=== PATIENT | male | born 1955 | race Caucasian/White ===

== ENCOUNTER 2022-04-23 14:37 | Emergency (ER) | payer MEDICARE, SELFPAY ==
[2022-04-23 14:39] VITALS: BP 150/84; PULSE 102; RESP 20; TEMP 36.7; O2SAT 94; BMI 35.9
[2022-04-23 14:45] VITALS: BP 151/97; PULSE 122; RESP 16; O2SAT 92
--- NOTE | 2022-04-23 15:06 | CT_ITS ---
WS: [id number] CT ABDOMEN AND PELVIS NONCONTRAST HISTORY: hematuria, flank pain TECHNIQUE: Imaging performed through the abdomen and pelvis. Coronal and sagittal reformats are submi tted. All CT scans at [facility] use at least one of these dose optimization techniques: auto mated exposure control; mA and/or kV adjustment per patient size (includes targeted exams where dose is matched to clinical indication); or iterative reconstruction. DLP: 1600.03 mGy.cm COMPARISON: None available. Motion artifact. Lower thorax: Significant motion artifact. Normal size heart. Liver: Normal size liver. No mass or bile duct dilatation. Gallbladder: Significant motion artifact but no adjacent inflammation. Pancreas: Normal size and attenuation. Normal pancreatic duct. No pancreatitis or mass. Spleen: Normal. Adrenal glands: Normal. No mass. Right kidney: Normal size kidney with no mass or hydronephrosis. Left kidney: Normal size kidney. Solid mass is nearly isodense to the adjacent renal parenchyma in th e upper pole. Mass measures 6.4 x 5.3 cm and needs to be further evaluated. Cortical thinning and atr ophy lower pole. Aorta: Mild atherosclerosis aorta. 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 No free fluid, intraperitoneal air or significant lymphadenopathy. GI tract: Normal appendix. No GI tract obstruction. Numerous diverticula without acute diverticulitis . Abdominal wall: Benign-appearing lipoma in the subcutaneous soft tissues of the LEFT abdominal wall m easuring 10 x 9 cm. Pelvis: Normal. Osseous structures: Mild thoracolumbar scoliosis. CT/CT kidney stone [id number] IMPRESSION: 1. No renal obstruction or calcifications. 2. Study is significantly compromised by breathing motion artifact. 3. Solid LEFT renal mass upper pole measures 6.4 x 5.3 cm. Solid renal mass ve rsus hemorrhagic cyst. Recommend follow-up renal mass CT protocol. 4. Additional cortical thinning and scarring lower pole LEFT kidney. 5. Normal appendix. 6. LEFT lateral abdominal wall lipoma.
--- NOTE | 2022-04-23 15:07 | W.ED.MALEGU ---
HPI - Male Genitourinary General: Chief complaint: Urogenital-Male Stated complaint: sent for catscan, abd pain Time Seen by Provider: 04/23/22 14:58 History of Present Illness: 67-year-old male sent in by his primary care provider. Patient reports he was sent for a CAT scan due to having some difficulty urinating with just dribbles, and was told he had a bad infection and blood and they wanted him checked for a kidney stone. Patient reports he started having a hard time with urination yesterday. That he has little bit of mild flank pain bilateral. That he was told that he can get IV fluids and IV antibiotics here. Patient denies any fevers chills nausea or vomiting Associated symptoms: Reports dysuria; Deny nausea or vomiting Review of Systems Const: Denies: fever(s) or chills Eyes: Denies: change in vision or blurry vision Card: Denies: chest pain or palpitations Resp: Denies: dyspnea or productive cough GI: Denies: abdominal pain, nausea or vomiting : Reports: flank pain, dysuria and urinary dribbling Musc: Reports: back pain Skin/Breast: Denies: rash or pruritus Neuro: Denies: headache(s) or dizziness PFSH ED PFSH: Social History Smoking and tobacco status: former smoker Physical Exam Const: COMMON NORMALS: no acute distress, patient oriented x3 and alert HENMT: COMMON NORMALS: hearing grossly normal bilaterally and moist oral mucous membranes Eye: COMMON NORMALS: EOMs intact bilaterally and conjunctivae normal CONJUNCTIVA: Yes conjunctivae normal Resp: COMMON NORMALS: normal respiratory effort, No use of accessory muscles and clear to auscultation bilaterally AUSCULTATION: clear to auscultation bilaterally Cardio: COMMON NORMALS: regular rate and regular rhythm RATE: regular rate RHYTHM: regular rhythm GI: COMMON NORMALS: Soft to palpation PALPATION: Yes Soft to palpation, Yes Tenderness to palpation present (GI) Details: other (Suprapubic) and Yes Bladder palpation abnormal : BLADDER/KIDNEY EXAM: Yes Bladder palpation abnormal Bladder abnormal details: tender and Yes CVA tenderness bilateral (Mild) Back/Pelvis: GENERAL BACK: Yes CVA tenderness Extremity: COMMON NORMALS: full ROM and capillary refill normal Neuro: COMMON NORMALS: patient oriented x3, no focal motor deficits and no sensory deficits noted SENSORIUM/ORIENTATION: Yes alert Psych: COMMON NORMALS: mental status grossly normal, Normal thought process present and normal affect THOUGHT PROCESS: Normal thought process present Skin: COMMON NORMALS: no rashes or lesions noted GENERAL SKIN EXAM: no rashes or lesions noted Course Vital Signs: Vital signs: Vital Signs Temperature 98.0 F 04/23/22 14:39 Pulse Rate 102 H 04/23/22 14:39 Respiratory Rate 20 H 04/23/22 14:39 Blood Pressure 150/84 04/23/22 14:39 Pulse Oximetry 94 04/23/22 14:39 MDM - Male Medical Decision Making Patient with a urinary tract infection treated with Rocephin. There is no signs of traction or calculus. There is a solid left renal mass that needs to be further evaluated which I discussed with patient and they will follow-up with her primary care provider for further evaluation and work-up. Patient stable and discharged home Lab Data Radiology Impressions Abdomen/Pelvis CT 04/23/22 15:06 IMPRESSION: 1. No renal obstruction or calcifications. 2. Study is significantly compromised by breathing motion artifact. 3. Solid LEFT renal mass upper pole measures 6.4 x 5.3 cm. Solid renal mass versus hemorrhagic cyst. Recommend follow-up renal mass CT protocol. 4. Additional cortical thinning and scarring lower pole LEFT kidney. 5. Normal appendix. 6. LEFT lateral abdominal wall lipoma. Laboratory Results Urine Color Dark yellow (Yellow) 04/23/22 15:39 Urine Appearance Cloudy (CLEAR) A 04/23/22 15:39 Urine pH 6 (5-7) 04/23/22 15:39 Ur Specific [place] 1.020 (1.005-1.030) 04/23/22 15:39 Urine Protein 3+ (Negative) H 04/23/22 15:39 Urine Glucose (UA) Norm (Normal) 04/23/22 15:39 Urine Ketones Negative (Negative) 04/23/22 15:39 Urine Blood 3+ (Negative) H 04/23/22 15:39 Urine Nitrate Positive (Negative) H 04/23/22 15:39 Urine Bilirubin 1+ (Negative) H 04/23/22 15:39 Urine Urobilinogen Norm mg/dL (Negative) 04/23/22 15:39 Ur Leukocyte Esterase 2+ (Negative) H 04/23/22 15:39 Amorphous Sediment Not Reportable 04/23/22 15:39 Discharge Plan Discharge Condition: Stable Prescriptions: No Action omeprazole 40 mg capsule,delayed release(DR/EC) 40 mg PO DAILY montelukast 10 mg tablet 10 mg PO DAILY (DME) pen needle, diabetic [Droplet Pen Needle] 31 gauge x 5/16 needle See Rx Instructions .Route Rx Instructions: As directed glipizide 5 mg tablet 5 mg PO DAILY lovastatin 20 mg tablet 20 mg PO DAILY tamsulosin [Flomax] 0.4 mg capsule 0.4 mg PO DAILY hydrochlorothiazide 25 mg tablet 25 mg PO DAILY amlodipine [Norvasc] 5 mg tablet 5 mg PO DAILY hydralazine 50 mg tablet 50 mg PO TID metoprolol tartrate 50 mg tablet 50 mg PO BID Victoza 2-Ramon 0.6 mg/0.1 mL (18 mg/3 mL) pen injector 1.2 mg SUBCUT DAILY Qty: 6 12RF Aspir-81 81 mg Tablet,Delayed Release (Dr/Ec) 81 mg PO DAILY Referrals: Neelam Pappas FNP [Primary Care Provider] - Coding Level of Care Code ED Brushing Machine Operator for Chg Fwd Exam Comprehensive
[2022-04-23] MEDS: ketorolac 30 mg/mL INJ 15 MG IVP (15:39)
[2022-04-23] MEDS: sodium chloride 0.9% 1,000 ML 999 ML IV (15:40)
[2022-04-23 15:45] VITALS: BP 118/87; PULSE 100; RESP 18; O2SAT 94
[2022-04-23 16:30] LABS: Blood Urine 3+ (Negative); Glucose Urine UA Norm (Normal); Ketones Urine Negative (Negative); Nitrate Urine Positive (Negative); Protein Urine 3+ (Negative); Urine Appearance Cloudy (CLEAR); Urine Color Dark Yellow (Yellow); pH Urine 6 (5-7)
[2022-04-23 16:31] LABS: Add Urine Culture? Yes; Add Urine Microscopic? YES; Bilirubin Urine 1+ (Negative); Leukocyte Esterase Urine 2+ (Negative); Urobilinogen Urine Norm (Negative)
--- NOTE | 2022-04-23 16:52 | PC.NURSE ---
DR. VALDIVIA INSTRUCTED NOT TO GET BLOOD CULTURE
[2022-04-23] MEDS: cefTRIAXone 1,000 MG in sodium chloride 0.9% (plus) 50 ML 100 MG IV (16:55)
[2022-04-23 17:40] LABS: Bacteria Urine 2+ /hpf; Mucus Urine TRACE /hpf; RBC Urine >100 /hpf (0-2); Squamous Epithelial Cell Urine 0-4 /hpf (0-5); WBC Urine >100 /hpf (0-5)
[2022-04-23 17:42] VITALS: BP 129/98; PULSE 94
== END 2022-04-23 17:58 | disposition home or self-care (01) ==
PROVIDERS: Emergency Provider Student in an Organized Health Care Education/Training Program; PCP Nurse Practitioner Family
DX: R39.12 Poor urinary stream (principal); Z79.84 Long term (current) use of oral hypoglycemic drugs; Z79.82 Long term (current) use of aspirin; Z87.891 Personal history of nicotine dependence
CPT/HCPCS: 74176; 81001; 96365; 96375; 99285; J0696; J1885; J7030

== ENCOUNTER 2024-06-17 20:43 | Emergency (ER) | payer MEDICARE, SELFPAY ==
--- NOTE | 2024-06-17 20:52 | XRR_ITS ---
PROCEDURE INFORMATION: Exam: XR Chest Exam date and time: 06/17/2024 9:10 PM Age: 69 years old Clinical indication: Patient HX: Lt side weakness/facial droop; Stroke like symptoms TECHNIQUE: Imaging protocol: Radiologic exam of the chest. Views: 1 view. COMPARISON: CT angio headneck* [id number] 06/17/2024 8:54 PM FINDINGS: Lungs: Unremarkable. No consolidation. Pleural spaces: Unremarkable. No pleural effusion. No pneumothorax. Heart/Mediastinum: Unremarkable. No cardiomegaly. Bones/joints: Unremarkable. XR/XR chest 1V portable [id number] IMPRESSION: No acute findings.
--- NOTE | 2024-06-17 20:52 | ECG_ITS ---
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 Measurements Intervals Thornton Rate: 105 P: 0 NM: 0 QRS: -66 QRSD: 166 T: 51 QT: 388 QTc: 514 Interpretive Statements Supraventricular rhythm. Heavy artifact. Further interpretation is not possible. Repeat the study Electronically Signed On 06-17-2024 21:33:40 [employer]ODUCTS [employer]SEM[employer] by Chino Montiel M.D. [email or web address]
--- NOTE | 2024-06-17 20:52 | CTR_ITS ---
PROCEDURE INFORMATION: Exam: CTA Head With Contrast, Arteriography Exam date and time: 06/17/2024 8:54 PM Age: 69 years old Clinical indication: Stroke-like symptoms; Left facial droop; Lt upper extremity weakness; Additional info: Weakness left TECHNIQUE: Imaging protocol: Computed tomographic angiography of the head with contrast. Exam focused on the arteries. 3D rendering (Not supervised by radiologist): MIP and/or 3D reconstructed images were created by the technologist. Radiation optimization: All CT scans at this facility use at least one of these dose optimization techniques: automated exposure control; mA and/or kV adjustment per patient size (includes targeted exams where dose is matched to clinical indication); or iterative reconstruction. Contrast material: OMNI 350; Contrast volume: 100 ml; Contrast route: INTRAVENOUS (IV); COMPARISON: CT head thrombolytic [id number] 06/17/2024 8:45 PM RADIATION DOSE METRICS: Total DLP (mGy-cm): 370.23 FINDINGS: ANTERIOR CIRCULATION: Right internal carotid artery: Partially occlusive thrombus within the intracranial segments. Right middle cerebral artery: Occlusive thrombus at the M1 segment. Right anterior cerebral artery: No occlusion or significant stenosis. No aneurysm. Left internal carotid artery: Intracranial segment is patent with no significant stenosis. No aneurysm. Left middle cerebral artery: No occlusion or significant stenosis. No aneurysm. Left anterior cerebral artery: No occlusion or significant stenosis. No aneurysm. POSTERIOR CIRCULATION: Right vertebral artery: No occlusion or significant stenosis. No aneurysm. Left vertebral artery: No occlusion or significant stenosis. No aneurysm. Basilar artery: No occlusion or significant stenosis. No aneurysm. Right posterior cerebral artery: No occlusion or significant stenosis. No aneurysm. Left posterior cerebral artery: No occlusion or significant stenosis. No aneurysm. Brain: No definite mass, mass effect, or midline shift. Cerebral ventricles: No ventriculomegaly. Bones/joints: Unremarkable. No acute fracture. Soft tissues: Unremarkable. PROCEDURE INFORMATION: Exam: CTA Neck With Contrast Exam date and time: 06/17/2024 8:54 PM Age: 69 years old Clinical indication: Stroke-like symptoms; Left facial droop; Lt upper extremity weakness; Additional info: Weakness left TECHNIQUE: Imaging protocol: Computed tomographic angiography of the neck with contrast. Exam focused on the cervical segments of the vasculature. 3D rendering (Not supervised by radiologist): MIP and/or 3D reconstructed images were created by the technologist. Radiation optimization: All CT scans at this facility use at least one of these dose optimization techniques: automated exposure control; mA and/or kV adjustment per patient size (includes targeted exams where dose is matched to clinical indication); or iterative reconstruction. Contrast material: OMNI 350; Contrast volume: 100 ml; Contrast route: INTRAVENOUS (IV); COMPARISON: CT head thrombolytic [id number] 06/17/2024 8:45 PM RADIATION DOSE METRICS: Total DLP (mGy-cm): 370.23 FINDINGS: Right common carotid artery: No stenosis. No dissection or occlusion. Right internal carotid artery: Occluded from the origin through its cervical course. Right external carotid artery: No occlusion or stenosis of the origin. Left common carotid artery: No stenosis. No dissection or occlusion. Left internal carotid artery: No stenosis of the extracranial segment. No dissection or occlusion. Left external carotid artery: No occlusion or stenosis of the origin. Right vertebral artery: No stenosis. No dissection or occlusion. Left vertebral artery: No stenosis. No dissection or occlusion. Soft tissues: Normal. No significant soft tissue swelling. Bones/joints: No acute fracture. CT/CT angio headneck* [id number] IMPRESSION: 1. Occlusive thrombus at the M1 segment of the right middle cerebral artery. 2. Partially occlusive thrombus at the intracranial segments of the right internal carotid artery. 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 REFERENCES: NASCET CRITERIA. The degree of stenosis in the cervical segment of the internal carotid artery is based on NASCET criteria. Normal is no stenosis. Mild is less than 50% stenosis. Moderate is 50-69% stenosis. Severe is 70% to 99% stenosis. Total occlusion is no detectable patent lumen.
--- NOTE | 2024-06-17 20:52 | CTR_ITS ---
PROCEDURE INFORMATION: Exam: CT Head Without Contrast Exam date and time: 06/17/2024 8:45 PM Age: 69 years old Clinical indication: Stroke-like symptoms; Left facial droop; Lt upper extremity weakness; Additional info: EMS arrival for possible stroke. Witnessed collapse at home. Lue flaccid with left facial droop. Lkwt 1940 hours. TECHNIQUE: Imaging protocol: Computed tomography of the head without contrast. Radiation optimization: All CT scans at this facility use at least one of these dose optimization techniques: automated exposure control; mA and/or kV adjustment per patient size (includes targeted exams where dose is matched to clinical indication); or iterative reconstruction. Other technique: STROKE PROTOCOL was implemented. COMPARISON: No relevant prior studies available. RADIATION DOSE METRICS: Total DLP (mGy-cm): 1130.25 FINDINGS: Brain: No hemorrhage. No edema. Mild diffuse cerebral atrophy and sequela of chronic small vessel ischemic disease. No mass effect. Cerebral ventricles: No ventriculomegaly. Paranasal sinuses: Visualized sinuses are unremarkable. No fluid levels. Mastoid air cells: Visualized mastoid air cells are well aerated. Bones: Unremarkable. No acute fracture. Soft tissues: Unremarkable. CT/CT head thrombolytic [id number] IMPRESSION: No acute intracranial abnormality. ASSESSMENT: ASPECTS ([place] Stroke Program Early CT Score) is 10.
[2024-06-17 20:58] LABS: Glucose Point of Care 276 mg/dL (70-110)
[2024-06-17] MEDS: iohexol 350 mg/mL 500 mL Btl (per mL) IV (21:00)
[2024-06-17 21:05] VITALS: BP 107/72; PULSE 106; RESP 18; O2SAT 98
[2024-06-17] MEDS: adenosine 3 mg/mL SDV 2mL 6 MG IVP (21:08)
--- NOTE | 2024-06-17 21:11 | W.ED.WEAKNES ---
HPI - Weakness General: Chief complaint: Weakness Stated complaint: WEAKNESS Time Seen by Provider: 06/17/24 20:44 History of Present Illness: 69-year-old male patient who evidently was not unwell earlier in the day. Family notes sometime just after 7:30 PM, he got up and then collapsed. They were able to get him to a chair but noticed his left face was drooped, and his left side, particularly his arm was flaccid. He was having trouble speaking as well. They called an ambulance. IV was established. Stroke alert was called from the field. The patient is evaluated initially in CT scan. [facility] ED PFSH: Social History Smoking and tobacco/nicotine status: former use of tobacco/nicotine Physical Exam Const: GENERAL APPEARANCE: cooperative, in distress, lethargic, ill appearing and frail appearing NUTRITIONAL APPEARANCE: obese ORIENTATION/CONSCIOUSNESS: Yes awake, Yes oriented to person, Yes oriented to place, Yes oriented to time and Yes lethargic HENMT: COMMON NORMALS: normocephalic, atraumatic and Normal external nose present HEAD & SCALP: normocephalic and atraumatic FACE & SINUS: other (left facial droop) NOSE: Normal external nose present Eye: COMMON NORMALS: Equal, round and reactive pupils present PUPIL: Yes Equal, round and reactive pupils present Neck/C-Spine: GENERAL: Yes trachea midline Chest: CHEST: Yes Symmetrical chest wall rise Resp: COMMON NORMALS: clear to auscultation bilaterally EFFORT & INSPECTION: Yes tachypneic and Yes labored (mildly) AUSCULTATION: clear to auscultation bilaterally Cardio: COMMON NORMALS: regular rhythm RATE: tachycardic RHYTHM: regular rhythm GI: COMMON NORMALS: Normal to inspection, nondistended, normoactive bowel sounds present Neuro: BRITTANY COMA SCALE: document GCS findings [place] coma scale eye opening: Spontaneous [place] coma scale verbal response: Orientated [place] coma scale motor response: Obey commands Brittany coma scale total score: 15 SENSORIUM/ORIENTATION: Yes oriented to person, Yes oriented to place, Yes oriented to time and Yes lethargic SPEECH: abnormal speech Psych: COMMON NORMALS: Normal thought process present THOUGHT PROCESS: Normal thought process present Skin: COMMON NORMALS: no rashes or lesions noted GENERAL SKIN EXAM: no rashes or lesions noted Course Vital Signs: Vital signs: Vital Signs Pulse Rate 83 06/17/24 22:44 Respiratory Rate 17 06/17/24 21:41 Blood Pressure 143/78 06/17/24 22:44 Pulse Oximetry 99 06/17/24 22:44 Oxygen Delivery Me thod Room Air 06/17/24 21:41 MDM - Weakness Medical Decision Making After returning from CT scan, the patient was further evaluated. He was tachycardic in the 110s to 120s at the time. He could answer questions appropriately. He has significant left-sided facial droop, a flaccid left upper extremity, and a weak left lower extremity. He had sensory changes to the left upper and lower extremity as well. He has dysarthria. He does not seem to have significant aphasia. He does have neglect of the left side. His NIH is 16 by my score. After his evaluation, his heart rate began to increase. It was as high as 180. It appeared irregular, and somewhat widened. The patient is not complaining of chest discomfort. He was given 6 mg of adenosine without any slowing of his rate whatsoever. He was deemed unstable at this point. He was given 150 mg slow IV push, with improvement in his rate down to 100-110. Currently heart rate is 90, blood pressure 147/83, saturation is 100 on 2 L oxygen by nasal cannula. His respirations are 18. He is awake, and talking. He is conversing with family. He is getting an amiodarone infusion at this point. His K+ was also found to be 2.2 which is likely contributing. He is started on an 80mEq infusion over 8 hours. Because of his high NIH score, it was of determined that he was a good candidate for TNKase given his abrupt onset of symptoms, and being within the window without anticoagulation history. He is given dose by waiting of TNKase. He remained stable without improvement or decline in his neurologic status. His CTA shows occlusive thrombus at the M1 segment of the right MCA. 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 As he is potentially a candidate for IR intervention, and the fact that we do not have in-house neurology at this point at this facility, he will be transferred to [facility]. Neurology has accepted there. I have spoken with their team. Our nursing team is coordinating with their cash management coordinator. [facility] declined due to weather, so he will have to go by ground. He is transferred emegergently. Lab Data 06/17/24 21:20 06/17/24 21:20 Radiology Impressions Chest X-Ray 06/17/24 20:52 IMPRESSION: No acute findings. Head CT 06/17/24:52 IMPRESSION: No acute intracranial abnormality. ASSESSMENT: ASPECTS ([place] Stroke Program Early CT Score) is 10. ADDENDUM: 06/17/242117 Findings were discussed with LUKAS REN at 06/17/2024 9:16 PM [employer]. Head/Neck CTA 06/17/24 20:52 IMPRESSION: 1. Occlusive thrombus at the M1 segment of the right middle cerebral artery. 2. Partially occlusive thrombus at the intracranial segments of the right internal carotid artery. 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 REFERENCES: NASCET CRITERIA. The degree of stenosis in the cervical segment of the internal carotid artery is based on NASCET criteria. Normal is no stenosis. Mild is less than 50% stenosis. Moderate is 50-69% stenosis. Severe is 70% to 99% stenosis. Total occlusion is no detectable patent lumen. ADDENDUM: 06/17/242126 THIS REPORT CONTAINS FINDINGS THAT MAY BE CRITICAL TO PATIENT CARE. The findings were verbally communicated via telephone conference with LUKAS REN at 9:26 PM [employer] on 06/17/2024. The findings were acknowledged and understood. Laboratory Results WBC 8.50 10^3/uL (3.29-11.43) 06/17/24 21: RBC 5.32 10^6/uL (3.85-5.65) 06/17/24: Hgb 15.80 g/dL (11.27-16.99) 06/17/24 21: Hct 46.6 % (37-53) 06/17/24 21: MCV 87.6 fl (82-101) 06/17/24 21: MCH 29.7 pg (27-33) 06/17/24: MCHC 33.9 g/dL (30-55) 06/17/24: RDW 12.8 % (12.1-15.1) 06/17/24 21:20 Plt Count 298 10^3/cmm (157-399) 06/17/24 21:20 MPV 11.0 fL (7.4-10.4) H 06/17/24 21:20 Neut % (Auto) 83.0 % 06/17/24 21:20 Lymph % (Auto) 10.4 % 06/17/24 21:20 [place] % (Auto) 5.4 % 06/17/24 21:20 Eos % (Auto) 0.0 % 06/17/24 21:20 Baso % (Auto) 0.5 % 06/17/24 21:20 Neut # (Auto) 7.06 10^3/uL (1.8-7.7) 06/17/24 21:20 Lymph # (Auto) 0.9 10^3/uL (0.8-4.8) 06/17/24 21:20 [place] # (Auto) 0.5 10^3/uL (0.2-0.9) 06/17/24 21:20 Eos # (Auto) 0.0 10^3/uL (0.0-0.8) 06/17/24 21:20 Baso # (Auto) 0.0 10^3/uL (0.0-0.1) 06/17/24 21:20 Nucleated RBC % (auto) 0 % 06/17/24 21: Nucleated RBCs # 0.0 /100WBC 06/17/24 21:20 PT 14.50 SECONDS (12.1-14.9) 06/17/24 21:20 INR 1.05 (0.8-1.2) 06/17/24 21:20 APTT 24.4 SECONDS (23.9-36.7) 06/17/24 21:20 Specimen Type Arterial 06/17/24 21:20 Sample Site Brachial, right 06/17/24 21:20 ABG pH 7.35 (7.35-7.45) 06/17/24 21:20 ABG pCO2 26.2 mmHg (35-45) L 06/17/24 21:20 ABG pO2 101.0 mmHg (80.0-100.0) H 06/17/24 21:20 ABG PO2/FiO2 Ratio 2525 06/17/24 21:20 ABG HCO3 14.4 mmol/L (22-26) L 06/17/24 21:20 ABG Base Excess -9.4 mmol/L (-2.0-2.0) L 06/17/24 21:20 Earnest Test N/a 06/17/24 21:20 Hematocrit 48.6 % (42-52) 06/17/24 21:20 O2 Delivery Device Nc 06/17/24 21:20 FiO2 4.0 % 06/17/24 21:20 Blankbook Forwarder ID [email or web address] 06/17/24 21:20 Sodium 130 mmol/L (136-145) L 06/17/24 21:20 Potassium 2.2 mmol/L (3.5-5.1) L* 06/17/24 21:20 Chloride 78 mmol/L (98-107) L 06/17/24 21:20 Carbon Dioxide 15 mmol/L (22-29) L 06/17/24 21:20 Anion Gap 39.2 (5-19) H 06/17/24 21:20 BUN 47 mg/dL (8-23) H 06/17/24 21:20 Creatinine 3.4 mg/dL (0.7-1.2) H 06/17/24 21:20 GFR Calculation 18.0 mL/min (90-130) L 06/17/24 21:20 Glucose 298 mg/dL (65-115) H 06/17/24 21:20 POC Glucose 276 mg/dL (70-110) H 06/17/24 20:45 Calculated Osmolality 293 mOsm/kg (285-295) 06/17/24 21:20 Calcium 8.7 mg/dL (8.5-10.5) 06/17/24 21:20 Total Bilirubin 0.8 mg/dL (0.15-1.2) 06/17/24 21:20 AST 54 U/L (0-40) H 06/17/24 21:20 ALT 37 U/L (0-41) 06/17/24 21:20 Alkaline Phosphatase 89 U/L (40-130) 06/17/24 21:20 Troponin T Baseline 53 ng/L (0-15) H 06/17/24 21:20 Total Protein 7.3 g/dL (6.6-8.7) 06/17/24 21:20 Albumin 4.1 g/dL (3.5-5.2) 06/17/24 21:20 Globulin 3.2 g/dL (1.3-4.6) 06/17/24 21:20 Ethyl Alcohol < 10 mg/dL (0-10) 06/17/24 21:20 All radiology interpretation(s) finalized by discharge Critical Care Time Critical Care Time: Critical Care Time: Yes Total Critical Care Time: 50 Attestation: This case had a high probability of a clinically significant, sudden, or life threatening deterioration of this patient's condition which required my full and direct attention, intervention and personal management. Time does not include any procedures performed on the patient Discharge Plan Discharge Patient Disposition: Xfer Short-Term Hosp Clinical Impression: Acute cerebrovascular accident (CVA), Atrial fibrillation with RVR, Acute hypokalemia Condition: Critical Referrals: Neelam Pappas FNP [Primary Care Provider] - Coding Level of Care Code ED Landscape Architecture Teacher for Chg Fwd Related Data Home Medications Medication Instructions Recorded Confirmed amlodipine 5 mg tablet (Norvasc) 5 mg PO DAILY 09/12/21 04/23/22 glipizide 5 mg tablet 5 mg PO DAILY 09/12/21 04/23/22 hydralazine 50 mg tablet 50 mg PO TID 09/12/21 04/23/22 hydrochlorothiazide 25 mg tablet 25 mg PO DAILY 09/12/21 04/23/22 lovastatin 20 mg tablet 20 mg PO DAILY 09/12/21 04/23/22 metoprolol tartrate 50 mg tablet 50 mg PO BID 09/12/21 04/23/22 montelukast 10 mg tablet 10 mg PO DAILY 09/12/21 04/23/22 omeprazole 40 mg capsule,delayed 40 mg PO DAILY 09/12/21 04/23/22 release pen needle, diabetic 31 gauge x 09/12/21 04/23/22/16 (Droplet Pen Needle) tamsulosin 0.4 mg capsule (Flomax) 0.4 mg PO DAILY 09/12/21 04/23/22 aspirin 81 mg tablet,delayed 81 mg PO DAILY 04/23/22 04/23/22 release Previous Rx's Medication Instructions Recorded liraglutide 0.6 mg/0.1 mL (18 mg/3 1.2 mg (0.2 mL) SUBCUT DAILY #6 mL 09/16/21 mL) subcutaneous pen injector (Victoza 2-Ramon) Allergies Allergy/AdvReac Type Severity Reaction Status Date / Time No Known Allergies Allergy Verified 04/23/22 15:34 NIH stroke score NIHSS Level Of Consciousness - 1a: 0 Level Of Consciousness Questions - 1b: Both Correct Level Of Consciousness Commands - 1c: Both Correct Best Gaze - 2: Normal Visual [place] - 3: No Visual Loss Facial Palsy - 4: Partial Paralysis Motor Arm Right - 5: No Drift Motor Arm Left - 5: No Movement Motor Leg Right - 6: No Drift Motor Leg Left - 6: Effort Against [place] Limb Ataxia - 7: Present In Two Limbs Sensory - 8: Severe To Total Loss Best Language - 9: Mild/Moderate Aphasia Dysarthia - 10: Mild/Moderate Dysarthia Extinction And Inattention - 11: 2 Score Total Score: 16
[2024-06-17] MEDS: amiodarone 50 mg/mL SDV 3 mL 150 MG IVP (21:24)
[2024-06-17 21:31] LABS: ABG PCO2 26.2 mmHg (35-45); ABG PH Result 7.35 (7.35-7.45); Arterial Blood Gas Hematocrit 48.6 % (42-52); Base Excess ABG -9.4 mmol/L (-2.0-2.0); Blood Gas Sample Site Brachial, right; Blood Gas Sample Type Arterial; HCO3 ABG 14.4 mmol/L (22-26); Oxygen Device NC; PO2 FiO2 Ratio Arterial Blood 2525
[2024-06-17] MEDS: tenecteplase 50mg Kit (STROKE) 25 MG IVP (21:32)
[2024-06-17] MEDS: sodium chloride 0.9% 1,000 ML 999 ML IV (21:36)
[2024-06-17 21:41] VITALS: BP 106/77; PULSE 94; RESP 17; O2SAT 96
[2024-06-17 21:44] LABS: Basophils % 0.5 %; Hematocrit 46.6 % (37-53); Lymphocytes # 0.9 10^3/uL (0.8-4.8); Lymphocytes % 10.4 %; Mean Corpuscular HGB Conc 33.9 g/dL (30-55); Mean Corpuscular Hemoglobin 29.7 pg (27-33); Mean Corpuscular Volume 87.6 fl (82-101); Monocytes # 0.5 10^3/uL (0.2-0.9); Monocytes % 5.4 %; Neutrophils # 7.06 10^3/uL (1.8-7.7); Nucleated Red Blood Cells % 0 %; Platelet Count 298 10^3/cmm (157-399); Red Blood Count 5.32 10^6/uL (3.85-5.65); Red Cell Distribution Width 12.8 % (12.1-15.1)
[2024-06-17 21:48] LABS: INR 1.05 (0.8-1.2)
[2024-06-17 21:49] LABS: Partial Thromboplastin Time 24.4 SECONDS (23.9-36.7)
[2024-06-17 21:53] LABS: Alanine Aminotransferase 37 U/L (0-41); Albumin Level 4.1 g/dL (3.5-5.2); Alkaline Phosphatase 89 U/L (40-130); Anion Gap 39.2 (5-19); Aspartate Amino Transferase 54 U/L (0-40); Blood Urea Nitrogen 47 mg/dL (8-23); Calcium 8.7 mg/dL (8.5-10.5); Carbon Dioxide 15 mmol/L (22-29); Chloride 78 mmol/L (98-107); Creatinine Clr Calc Pharmacy 26.0098; Globulin 3.2 g/dL (1.3-4.6); Glucose 298 mg/dL (65-115); Osmolality Calculated 293 mOsm/kg (285-295); Sodium 130 mmol/L (136-145); Total Bilirubin 0.8 mg/dL (0.15-1.2); Total Protein 7.3 g/dL (6.6-8.7)
[2024-06-17 21:55] LABS: Troponin(5th) Baseline 53 ng/L (0-15)
[2024-06-17 21:58] LABS: Alcohol Level < 10 mg/dL (0-10); Potassium 2.2 mmol/L (3.5-5.1)
[2024-06-17] MEDS: potassium chloride premix 100 ML 25 MEQ IV (22:40)
[2024-06-17 22:44] VITALS: BP 143/78; PULSE 83; O2SAT 99
== END 2024-06-17 22:46 | disposition short-term general hospital (02) ==
PROVIDERS: Emergency Provider Emergency Medicine; PCP Nurse Practitioner Family
DX: I63.9 Cerebral infarction, unspecified (principal); I48.20 Chronic atrial fibrillation, unspecified; E87.6 Hypokalemia; Z79.82 Long term (current) use of aspirin
CPT/HCPCS: 36416; 36600; 70450; 70496; 70498; 71045; 80053; 80307; 82803; 82962; 84484; 85025; 85610; 85730; 93005; 96374; 96375; 99291; 99292; J0153; J0282; J0283; J3101; J3480; J7030